=== PATIENT | male | born 1955 | race Caucasian/White ===

== ENCOUNTER 2018-11-16 16:41 | Inpatient (IN) | payer OTHER, MEDICAID ==
[~2018-11-16] VITALS: Ht 167.6 cm; Wt 81.6 kg
[~2018-11-16 16:41] MED LIST: ACET-9645 PO; AMOX-842 PO; BUSP15TA4 PO; CLOZ100T PO; FLUV50TA PO; IBUP-2213 PO; MULT-2410 PO; ZINC50TA7 PO
[2018-11-16 17:45] VITALS: BP 132/73
--- NOTE | 2018-11-16 18:02 | NUR ---
BIB HOSPITAL CODER FROM [facility] WITH C/O LOW HGB 7 DRAWN ON 11/818. PER HOSPITAL CODER PT IS WEAK AND VOMITED X 3 YESTERDAY. DENIES NVD TODAY. ON 09/18/18 WAS SENT TO [facility] FOR LOW Hgb HX; ANEMIA, SCHIZOPHRENIA, SEIZURES, BPH RX; LAMOTRIGINE, BENTROPINE, BUSPIRONE, TAMSULOSIN, CLOZAPINE,
--- NOTE | 2018-11-16 18:56 | NUR ---
PHLEB AT BEDSIDE.
[2018-11-16 19:02] LABS: BASOPHILS # (AUTO) 0.1 K/uL (0.00-0.22); BASOPHILS % (AUTO) 0.7 % (0.0-2.0); EOSINOPHILS # (AUTO) 0.2 K/uL (0-0.4); EOSINOPHILS % (AUTO) 2.4 % (0.0-4.0); LYMPHOCYTES # (AUTO) 1.6 K/uL (2.0-11.5); LYMPHOCYTES % (AUTO) 19.4 % (20.5-51.1); MEAN CORPUSCULAR HEMOGLOBIN 21 pg (27-31); MEAN CORPUSCULAR HGB CONC 30 g/dL (33-37); MEAN CORPUSCULAR VOLUME 71.4 fL (80-94); MONOCYTES # (AUTO) 0.5 K/uL (0.8-1.0); MONOCYTES % (AUTO) 6.8 % (1.7-9.3); NEUTROPHILS # (AUTO) 5.7 K/uL (1.8-7.7); NEUTROPHILS % (AUTO) 70.7 % (42.2-75.2); PLATELET COUNT (AUTO) 330 K/uL (140-450); RED BLOOD CELL COUNT(AUTO) 2.92 MIL/uL (4.20-6.10); RED CELL DISTRIBUTION WIDTH 20.3 % (11.6-13.7); WHITE BLOOD COUNT (AUTO) 8.1 K/uL (4.8-10.8)
[2018-11-16 19:07] LABS: HEMATOCRIT 20.9 % (36-52); HEMOGLOBIN 6.3 g/dL (12.0-18.0)
--- NOTE | 2018-11-16 19:09 | NUR ---
REPORT GIVEN TO RAMOS CHURCH AT THIS TIME FOR CONTINUITY OF CARE.
--- NOTE | 2018-11-16 19:10 | NUR ---
ASSUMED CARE OF PT FROM, BHARAT CHURCH
[2018-11-16 19:20] LABS: ALBUMIN 3.1 g/dL (3.4-5.0); ANION GAP 11.2 (8-16); CARBON DIOXIDE 29.5 mmol/L (21-32); CREATININE 0.5 mg/dL (0.7-1.3); POTASSIUM 3.7 mmol/L (3.5-5.1); TOTAL BILIRUBIN 0.2 mg/dL (0.0-1.0)
[2018-11-16] MEDS: NACL 0.9% 1,000 ML IV SCH (20:41)
[2018-11-16] MEDS ORDERED: DOCUSATE SODIUM 100 MG GELCAP PO PRN (20:45)
[2018-11-16] MEDS ORDERED: ZOLPIDEM 5 MG TAB PO PRN (20:45)
[2018-11-16] MEDS ORDERED: ONDANSETRON 4 MG/2 ML VIAL IM/IVP PRN (20:45)
[2018-11-16] MEDS ORDERED: ACETAMINOPHEN 325 MG TAB PO PRN (20:45)
[2018-11-16] MEDS ORDERED: MORPHINE SULFATE 4 MG/ML SYR IVP PRN (20:45)
[2018-11-16] MEDS ORDERED: HYDROcodone/APAP 5/325 MG 1 TAB TAB PO PRN (20:45)
--- NOTE | 2018-11-16 20:46 | NUR ---
PT RESTING IN BED, VSS. CAREGIVER AT BEDSIDE.
--- NOTE | 2018-11-16 21:15 | NUR ---
Patient will be admitted to care of DR BUCKLEY. Admited to TELE. Will go to room 106-B. Belongings list completed. Report to LYNNETTE WERNER.
[2018-11-16 21:20] VITALS: BP 141/64
--- NOTE | 2018-11-16 21:20 | NUR ---
RECEIVED BEDSIDE REPORT FROM AVIONICS REPAIR TECHNICIAN, PATIENT AMBULATORY FROM [facility] TO BED, ON RA, V/S TAKEN, IV IN LEFT AC 20 G SL, DRESSING INTACT. PATIENT DID NOT WANT TO WEAR YELLOW GOWN STATED "THAT'S DIRTY". EXPLAINED IT IS CLEAN PATIENT STATED "IT SMELLS BAD". WILL TRY AGAIN LATER, AAOX1 TO PERSON, SKIN INTACT.
[2018-11-16 21:21] LABS: PROTHROMBIN TIME 11.6 secs (10.8-13.4)
[2018-11-16 21:30] LABS: MAGNESIUM 1.8 mg/dL (1.8-2.4); PHOSPHORUS 3.2 mg/dL (2.5-4.9); THYROID STIMULATING HORMONE 2.47 uIU/mL (0.34-3.74)
[2018-11-16] MEDS ORDERED: TRAZ100T99 PO (22:09)
[2018-11-16] MEDS ORDERED: LAM200 PO (22:09)
[2018-11-16] MEDS ORDERED: BUSP15TA4 PO (22:09)
[2018-11-16] MEDS ORDERED: CLOZ100T PO (22:09)
[2018-11-16] MEDS ORDERED: TAMS0.4C96 PO (22:09)
[2018-11-16] MEDS ORDERED: BENZ-248 PO (22:09)
[2018-11-16] MEDS ORDERED: ALBUTEROL SULFATE/IPRATROPIU 3 ML SOL IH PRN (22:20)
--- NOTE | 2018-11-16 22:30 | NUR ---
CALLED [facility] SPOKE WITH ERICA, ASKED ADMISSION QUESTION, ASKED IF SHE CAN SIGN CONSENT FOR BLOOD, ERICA STATED NO. WILL NOTIFY RESIDENTS.
--- NOTE | 2018-11-16 23:04 | NUR ---
EXPLAINED THAT DR ORDERED BLOOD, PATIENT STATED "IT COST A TREMENDOUS AMOUNT OF MONEY". ASKED IF WANT BLOOD, PATIENT STATED "IT COST A TREMENDOUS AMOUNT OF MONEY". ASKED IF THAT MEANS YES OR NO? PATIENT DID NOT RESPOND.
[2018-11-17] VITALS (7 sets, daily range): BP systolic 97–128; BP diastolic 55–74
--- NOTE | 2018-11-17 01:17 | NUR ---
PATIENT REFUSING TO SIGN CONSENT TO BLOOD, ATTEMPTED TO EXPLAIN TO PATIENT WHY HE NEEDS IT, PATIENT CONTINUING TO REFUSE, ASKED TO SIGN REFUSAL TO BLOOD TRANSFUSION, PATIENT REFUSED TO SIGN, ASKED RN Kg TO TALK TO PATIENT, PATIENT SIGNED CONSENT TO REFUSE BLOOD TRANSFUSION, TOLD DR PARRY, DR AT BESIDE, EXPLAINED TO PATIENT WHY HE NEEDS IT, BELIEVES PATIENT IS UNABLE TO MAKE DECISIONS ON OWN.
--- NOTE | 2018-11-17 01:23 | NUR ---
CONSENT FOR BLOOD SIGNED BY DR PARRY AND DR MUNIZ.
[2018-11-17] MEDS: ACETAMINOPHEN 325 MG TAB PO SCH ×3 (01:49→08:00)
[2018-11-17] MEDS: FUROSEMIDE 20 MG TAB PO SCH ×2 (01:50→05:37)
--- NOTE | 2018-11-17 01:52 | NUR ---
PREINFUSION MEDICATIONS GIVEN BP 130/64 HR 70 100% O2SAT ON RA TEMP 97.5 F FLACC-0. IV IN LEFT SC FLUSHES. CONSENT SIGNED AND IN CHART.
--- NOTE | 2018-11-17 02:17 | NUR ---
STARTED BLOOD TRANSFUSION WITH CHARGE NURSE BLANK. WILL STAY AT BEDSIDE TO MONITOR PATIENT.
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
--- NOTE | 2018-11-17 02:47 | NUR ---
TEMP 97.6 F HR 63 RR 14 BP 119/64 0/10 PAIN PATIENT ATTEMPTED TO GET OUT OF BED, ASSISTED BACK INTO BED, BED ALARM ON, IV INTACT INFUSING BLOOD. PATIENT WANTED TO BE COVERED WITH BLANKET, REPOSITIONED FOR COMFORT, WILL STAY BY BEDSIDE TO MONITOR PATIENT.
--- NOTE | 2018-11-17 04:42 | NUR ---
PT REFUSED TO BE ASSESSED. RN SUMMER AWARE. NO SOB OR DISTRESS NOTED.
[2018-11-17] MEDS ORDERED: LORazepam 2 MG/ML VIAL IM/IVP PRN (05:15)
--- NOTE | 2018-11-17 06:02 | NUR ---
DUE PRE TRANSFUSION MEDICATIONS GIVEN, TALKED WITH DR PARRY TOLD TO DRAW LABS AND SEE WHERE PATIENT IS AT THAN START 2 UNIT BLOOD. REMOVED TUBING AND DISPOSED IN APPROPRIATE CONTAINER. FLUSHED IV WITH 10 ML. CHARGE NURSE BLANK FORRESTER.
[2018-11-17] MEDS: LORazepam 2 MG/ML VIAL IM/IVP PRN (06:34)
--- NOTE | 2018-11-17 06:38 | NUR ---
PATIENT RUNNING OUTSIDE HALLWAYS. TRIED TO HIT SISAL OPERATOR MEDICATED WITH ATIVAN FOR ANXIETY.
--- NOTE | 2018-11-17 06:55 | NUR ---
PATIENT REFUSING TO WEAR TELE BOX
--- NOTE | 2018-11-17 07:30 | NUR ---
ENDORSED PATIENT TO DAY SHIFT NURSE, PATIENT STABLE.
--- NOTE | 2018-11-17 07:31 | NUR ---
PATIENT LYING DOWN IN BED SLEEPING, AROUSABLE BY VOICE. NO DISTRESS NOTED. DENIES ANY PAIN. AAOX1, CALM, COOPERATIVE, SKIN COLOR APPROPRIATE TO ETHNICITY, WARM TO TOUCH. SKIN INTACT. RESPIRATIONS EVEN, UNLABORED, ON ROOM AIR. IV SITE INTACT, PATENT AND INFUSING IVF PER MD ORDERS. ABDOMEN SOFT, NON-DISTENDED. SAFETY MEASURES IN PLACE, CALL LIGHT WITHIN REACH. WILL CONTINUE TO MONITOR.
--- NOTE | 2018-11-17 07:51 | NUR ---
PATIENT HAS BEEN SCREENED AND CATEGORIZED LOW NUTRITION RISK. PATIENT WILL BE SEEN WITHIN 7 DAYS OF ADMISSION. 11/23/[address]
[2018-11-17] MEDS ORDERED: CLINICAL MONITORING MC PRN (07:55)
[2018-11-17 08:01] LABS: BASOPHILS % (AUTO) 0.7 % (0.0-2.0); EOSINOPHILS # (AUTO) 0.2 K/uL (0-0.4); EOSINOPHILS % (AUTO) 2.8 % (0.0-4.0); HEMATOCRIT 26.4 % (36-52); LYMPHOCYTES # (AUTO) 1.1 K/uL (2.0-11.5); LYMPHOCYTES % (AUTO) 15.4 % (20.5-51.1); MEAN CORPUSCULAR HEMOGLOBIN 22 pg (27-31); MEAN CORPUSCULAR HGB CONC 30 g/dL (33-37); MONOCYTES # (AUTO) 0.4 K/uL (0.8-1.0); MONOCYTES % (AUTO) 6.2 % (1.7-9.3); NEUTROPHILS # (AUTO) 5.3 K/uL (1.8-7.7); NEUTROPHILS % (AUTO) 74.9 % (42.2-75.2); PLATELET COUNT (AUTO) 322 K/uL (140-450); RED BLOOD CELL COUNT(AUTO) 3.62 MIL/uL (4.20-6.10); RED CELL DISTRIBUTION WIDTH 20.7 % (11.6-13.7); WHITE BLOOD COUNT (AUTO) 7.1 K/uL (4.8-10.8)
[2018-11-17 08:07] LABS: ANION GAP 10.7 (8-16); CARBON DIOXIDE 30.9 mmol/L (21-32); CREATININE 0.6 mg/dL (0.7-1.3); POTASSIUM 3.6 mmol/L (3.5-5.1)
[2018-11-17 08:13] LABS: CHOL/HDL RATIO 2.8 (1-4.5); MAGNESIUM 1.8 mg/dL (1.8-2.4); PHOSPHORUS 3.5 mg/dL (2.5-4.9)
[2018-11-17] MEDS ORDERED: busPIRone 5 MG TAB PO SCH (09:00)
[2018-11-17] MEDS ORDERED: SODIUM FERRIC GLUCONATE 125 MG in NACL 0.9% 100 ML IV SCH (09:00)
[2018-11-17] MEDS ORDERED: BENZTROPINE 1 MG TAB PO SCH (09:00)
--- NOTE | 2018-11-17 09:00 | NUR ---
PATIENT AWAKE, AND EATING BREAKFAST. NO DISTRESS NOTED. CONDITION UNCHANGED. WILL CONTINUE TO MONITOR.
[2018-11-17] MEDS: TAMSULOSIN 0.4 MG CAP PO SCH (09:50)
[2018-11-17] MEDS: cloZAPine 100 MG TAB PO SCH ×2 (09:56→21:00)
--- NOTE | 2018-11-17 10:09 | NUR ---
PATIENT SITTING IN BED, JUST FINISHED WORKING WITH PHYSICAL THERAPISTS. SCHEDULED MEDICATIONS DUE GIVEN. WILL CONTINUE TO MONITOR.
[2018-11-17 10:26] LABS: EOSINOPHILS % (MANUAL) 5 % (0-4); LYMPHOCYTES % (MANUAL) 13 % (20-46); MONOCYTES % (MANUAL) 6 % (5-12)
[2018-11-17] MEDS ORDERED: MAGNESIUM CITRATE 300 ML BTL PO SCH (11:20)
[2018-11-17] MEDS: LACTULOSE 20 GM/30 ML UDC PO SCH ×3 (12:42→20:42)
[2018-11-17] MEDS: SENNA 8.6 MG TAB PO SCH ×2 (12:42→17:28)
--- NOTE | 2018-11-17 13:00 | NUR ---
PATIENT LYING DOWN IN BED SLEEPING, AROUSABLE BY VOICE. NO DISTRESS NOTED. CONDITION UNCHANGED. WILL CONTINUE TO MONITOR.
[2018-11-17 13:13] LABS: APPEARANCE,URINE CLEAR (CLEAR); BILIRUBIN,URINE NEGATIVE (NEGATIVE); BLOOD, URINE NEGATIVE (NEGATIVE); COLOR,URINE YELLOW (YELLOW); LEUKOCYTE ESTERASE ,URINE NEGATIVE (NEGATIVE); NITRITE, URINE NEGATIVE (NEGATIVE); UGLUCOSE NEGATIVE (NEGATIVE)
[2018-11-17 13:42] LABS: BARBITURATE, URINE NEG. ng/ml (NEG <=200); BENZODIAZEPINE, URINE NEG. ng/mL (NEG <=200); CANNABINOID, URINE NEG. ng/mL (NEG <=50); COCAINE, URINE NEG. ng/mL (NEG <=300); OPIATE, URINE NEG. ng/mL (NEG <=2000); PHENCYCLIDINE SCREEN,URINE NEG. ng/mL (NEG <=25)
--- NOTE | 2018-11-17 15:21 | NUR ---
Warehouse Pricing And Inventory Clerk Note: Per patient's caregiver Marilyn at [facility] , patient has been living at their facility since May 2011. Patient does not have any family nor is conserved according to Marilyn. She stated he does not have any difficulty ambulating and does not use any DMEs at their facility. Patient's pcp follows up with patient at [facility]. Marilyn or her delicatessen department manager Valentine may provide transportation for patient to return to their facility for our hospital.
--- NOTE | 2018-11-17 17:30 | NUR ---
PATIENT SITTING IN BED COMFORTABLY. NO BM YET PER PATIENT REPORTS. SCHEDULED MEDICATIONS DUE GIVEN. WILL CONTINUE TO MONITOR.
--- NOTE | 2018-11-17 19:30 | NUR ---
RECEIVED REPORT FROM DAYSHIFT NURSE AT BEDSIDE FOR CONTINUITY OF CARE. PT AAOX1. NO SOB NO S/S OF DISTRESS ON RA. IV NOTED LAC SALINE LOCK. BED LOWERED CALL LIGHT WITHIN REACH WILL CONTINUE TO MONITOR.
--- NOTE | 2018-11-17 19:30 | NUR ---
GAVE REPORT TO RESTAURANT DELIVERY DRIVER NURSE FOR CONTINUITY OF CARE. PATIENT IN STABLE CONDITION.
[2018-11-17] MEDS: traZODone 50 MG TAB PO SCH (20:42)
[2018-11-17] MEDS: busPIRone 5 MG TAB PO SCH (20:42)
[2018-11-17] MEDS: POLYETHYLENE GLYCOL 17 GM/PKT PO SCH (20:43)
[2018-11-17] MEDS ORDERED: traZODone 50 MG TAB PO SCH (21:00)
[2018-11-17] MEDS: NACL 0.9% 1,000 ML IV SCH (21:44)
[2018-11-18] VITALS: BP 90/49
[2018-11-18 04:00] VITALS: BP 93/46
[2018-11-18 05:59] LABS: BASOPHILS # (AUTO) 0.1 K/uL (0.00-0.22); BASOPHILS % (AUTO) 0.7 % (0.0-2.0); EOSINOPHILS # (AUTO) 0.1 K/uL (0-0.4); EOSINOPHILS % (AUTO) 1.9 % (0.0-4.0); HEMATOCRIT 25.4 % (36-52); HEMOGLOBIN 7.6 g/dL (12.0-18.0); LYMPHOCYTES # (AUTO) 1.3 K/uL (2.0-11.5); LYMPHOCYTES % (AUTO) 16.9 % (20.5-51.1); MEAN CORPUSCULAR HEMOGLOBIN 22 pg (27-31); MEAN CORPUSCULAR HGB CONC 30 g/dL (33-37); MONOCYTES # (AUTO) 0.5 K/uL (0.8-1.0); MONOCYTES % (AUTO) 6.5 % (1.7-9.3); NEUTROPHILS # (AUTO) 5.7 K/uL (1.8-7.7); PLATELET COUNT (AUTO) 324 K/uL (140-450); RED BLOOD CELL COUNT(AUTO) 3.48 MIL/uL (4.20-6.10); RED CELL DISTRIBUTION WIDTH 20.4 % (11.6-13.7); WHITE BLOOD COUNT (AUTO) 7.7 K/uL (4.8-10.8)
[2018-11-18 06:13] LABS: ANION GAP 10.7 (8-16); CARBON DIOXIDE 28.3 mmol/L (21-32); CREATININE 0.5 mg/dL (0.7-1.3)
[2018-11-18 06:19] LABS: PHOSPHORUS 3.9 mg/dL (2.5-4.9)
--- NOTE | 2018-11-18 06:54 | NUR ---
PT REFUSED FLEET ENEMA.
[2018-11-18] MEDS ORDERED: MAGNESIUM CITRATE 300 ML BTL ONE (06:56)
--- NOTE | 2018-11-18 07:26 | NUR ---
ENDORSED REPORT TO DAYSHIFT NURSE AT BEDSIDE FOR CONTINUITY OF CARE.
--- NOTE | 2018-11-18 07:27 | NUR ---
Received bedside report from pm nurse Swetha. Pt asleep in bed, respirations even & nonlabored, FLACC 0. Call light within reach, bed alarm on.
[2018-11-18 08:00] VITALS: BP_SYST 106; BP_SYST 113; BP_DIAS 62; BP_DIAS 63
[2018-11-18] MEDS ORDERED: FERROUS SULFATE 325 MG TABEC PO SCH (08:00)
[2018-11-18] MEDS ORDERED: MAGNESIUM CITRATE 300 ML BTL PO SCH ×2 (08:00→13:30)
[2018-11-18] MEDS ORDERED: SODIUM PHOSPHATE 118 ML ENEM RC SCH (08:00)
[2018-11-18 08:29] LABS: FERRITIN 13 ng/mL (30-400); T4 (THYROXINE) 7.7 ug/dL (4.5-12.0); TRANSFERRIN 253 mg/dL (200-370)
[2018-11-18] MEDS: POLYETHYLENE GLYCOL 17 GM/PKT PO SCH ×4 (09:00→21:33)
[2018-11-18] MEDS: POTASSIUM CHLORIDE 20% 40 MEQ/15 ML UDC GT SCH (09:00)
[2018-11-18] MEDS: LACTULOSE 20 GM/30 ML UDC PO SCH ×6 (09:00→21:33)
[2018-11-18] MEDS: TAMSULOSIN 0.4 MG CAP PO SCH (09:00)
[2018-11-18] MEDS: ASCORBIC ACID 500 MG TAB PO SCH (09:00)
[2018-11-18] MEDS: SENNA 8.6 MG TAB PO SCH ×3 (09:00→17:06)
[2018-11-18] MEDS: cloZAPine 100 MG TAB PO SCH ×3 (09:00→20:37)
[2018-11-18] MEDS: busPIRone 5 MG TAB PO SCH ×3 (09:00→20:36)
--- NOTE | 2018-11-18 09:16 | NUR ---
Pt refused all due meds this am. Explained indications of meds, & importance of completing bowel prep for EDG/colonoscopy today. Pt repeatedly states "no more, no more, i don't want it". Will notify physician of refusal.
[2018-11-18] MEDS: lamoTRIgine 25 MG TAB PO SCH ×2 (09:17→20:37)
[2018-11-18] MEDS ORDERED: VITC500 PO (10:30)
[2018-11-18] MEDS ORDERED: FERR325E14 PO (10:31)
--- NOTE | 2018-11-18 11:00 | NUR ---
DAY CARE DIRECTOR reports that while she is assisting pt to restroom, pt purposefully pulled out left ac IV. Immediately assessed pt. Intact IV cannula on floor, left ac insertion site without swelling/redness, min bleeding cleansed with NS, patted dry, & covered with band-aid. Pt states "no need for it" when asked why he pulled it out. Explained benefits of IV access, pt repeatedly replies "no, no." No IV meds due at this time. IVF NS @ 10ml/hr held. Pt was assisted back to bed. Call light within reach. Bed alarm on. Will cont to monitor.
[2018-11-18] MEDS: LORazepam 2 MG/ML VIAL IM/IVP PRN (11:24)
--- NOTE | 2018-11-18 11:24 | NUR ---
Lorazepam admin: Pt observed to be generally anxious, undressing, pulling out manager environmental, & wanting to leave hospital. Explained today's plan of care, pt repeatedly replies "no, no." Pt assisted to bed. Lorazepam IM administered. Call light within reach, bed alarm on.
[2018-11-18 12:00] VITALS: BP 109/62
--- NOTE | 2018-11-18 12:24 | NUR ---
Lorazepam reassessment: Pt resting in bed, awake, calm & cooperative, no signs of distress. Call light within reach. Bed alarm on. Bilat padded siderails up.
--- NOTE | 2018-11-18 14:00 | NUR ---
New IV access to right forearm. Resumed NS @ 10ml/hr. Pt shows no signs of distress, calm & cooperative, no c/o discomfort. Call light within reach.
--- NOTE | 2018-11-18 14:42 | NUR ---
Spoke with Tisha from [facility] and she will review pt's order for PT eval and will call me back. Faxed to [facility] .
[2018-11-18] MEDS ORDERED: SODIUM FERRIC GLUCONATE 125 MG in NACL 0.9% 100 ML IV SCH (15:00)
--- NOTE | 2018-11-18 15:00 | NUR ---
Pt pulled out IV to right forearm. Cannula intact. IV insertion site with min bleeding, cleansed with NS, patted dry, & covered with bandaid. Pt has no c/o pain/discomfort. Bed alarm on. Call light within reach.
--- NOTE | 2018-11-18 15:36 | NUR ---
Tisha called from [facility] they are accepting pt.
[2018-11-18 16:00] VITALS: BP 106/62
--- NOTE | 2018-11-18 19:10 | NUR ---
Report given to pm nurse Mechelle.
--- NOTE | 2018-11-18 19:11 | NUR ---
RECEIVED BEDSIDE REPORT FROM DAY SHIFT NURSE WILMA RN, PT STABLE, NO DISTRESS NOTED, PT HAS NO IV ACCESS AT THIS TIME, WILL INSERT, PT ON ROOM AIR, NO SOB, INITIAL ASSESSMENT DONE, ALL SAFETY PRECAUTION MET, CALL LIGHT WITHIN REACH, WILL CONTINUE TO MONITOR.
[2018-11-18 20:00] VITALS: BP 119/61
[2018-11-18] MEDS: traZODone 50 MG TAB PO SCH (20:22)
--- NOTE | 2018-11-18 20:40 | NUR ---
PT REFUSED IV INSERTION, STATED DOES NOT WANT IT. PT RESTING ON BED, NO DISTRESS NOTED, CALL LIGHT WITHIN REACH, DR. PARRY NOTIFIED REGARDING PT REFUSAL, STATED UNDERSTANDING.
[2018-11-18] MEDS: NACL 0.9% 1,000 ML IV SCH (20:41)
--- NOTE | 2018-11-18 21:33 | NUR ---
PT REFUSED PO MEDICATION, PT STATED THAT IT IS POISON, EDUCATE PT REGARDING MEDICATION, PT INSISTED THAT MEDICATION DOES NOT WORK AND IT IS POISON, LACTULOSE AND MIRALAX MIXED IN APPLE JUICE WAS TAKEN BY PT, BUT PT REFUSED THE TABLETS, PT RESTING, NO DISTRESS NOTED, CALL LIGHT WITHIN REACH, WILL CONTINUE TO MONITOR. Addendum: 11/18/18 at 2233 by Mechelle Gibbons RN NOTIFIED REGARDING PT REFUSAL, STATED UNDERSTANDING.
--- NOTE | 2018-11-18 23:50 | NUR ---
PT RESTING, V/S TAKEN, WITHIN PT BASELINE, CALL LIGHT WITHIN REACH, WILL CONTINUE TO MONITOR.
[2018-11-19] VITALS: BP 113/43
--- NOTE | 2018-11-19 02:45 | NUR ---
CHECKED ON PT, PT SLEEPING, NO DISTRESS NOTED, CALL LIGHT WITHIN REACH, WILL CONTINUE TO MONITOR.
[2018-11-19 04:00] VITALS: BP 110/48
--- NOTE | 2018-11-19 04:10 | NUR ---
CHECKED ON PT, PT SLEEPING, NO DISTRESS NOTED, V/S TAKEN, WNL. CALL LIGHT WITHIN REACH, WILL CONTINUE TO MONITOR.
[2018-11-19 06:34] LABS: BASOPHILS # (AUTO) 0.1 K/uL (0.00-0.22); BASOPHILS % (AUTO) 0.7 % (0.0-2.0); EOSINOPHILS # (AUTO) 0.1 K/uL (0-0.4); EOSINOPHILS % (AUTO) 1.4 % (0.0-4.0); HEMOGLOBIN 7.9 g/dL (12.0-18.0); LYMPHOCYTES # (AUTO) 1.2 K/uL (2.0-11.5); LYMPHOCYTES % (AUTO) 15.6 % (20.5-51.1); MEAN CORPUSCULAR HEMOGLOBIN 22 pg (27-31); MEAN CORPUSCULAR HGB CONC 30 g/dL (33-37); MEAN CORPUSCULAR VOLUME 72.8 fL (80-94); MONOCYTES # (AUTO) 0.5 K/uL (0.8-1.0); MONOCYTES % (AUTO) 6.8 % (1.7-9.3); NEUTROPHILS # (AUTO) 5.8 K/uL (1.8-7.7); NEUTROPHILS % (AUTO) 75.5 % (42.2-75.2); PLATELET COUNT (AUTO) 300 K/uL (140-450); RED BLOOD CELL COUNT(AUTO) 3.58 MIL/uL (4.20-6.10); RED CELL DISTRIBUTION WIDTH 20.9 % (11.6-13.7); WHITE BLOOD COUNT (AUTO) 7.7 K/uL (4.8-10.8)
[2018-11-19 06:45] LABS: ANION GAP 10.1 (8-16); CARBON DIOXIDE 30.7 mmol/L (21-32); CREATININE 0.5 mg/dL (0.7-1.3); POTASSIUM 3.8 mmol/L (3.5-5.1)
[2018-11-19 06:52] LABS: MAGNESIUM 2.3 mg/dL (1.8-2.4); PHOSPHORUS 3.4 mg/dL (2.5-4.9)
--- NOTE | 2018-11-19 07:20 | NUR ---
ENDORSED PT TO DAY SHIFT NURSE WILAM RN, PT IN STABLE CONDITION NO DISTRESS NOTED.
--- NOTE | 2018-11-19 07:21 | NUR ---
Received report from pm nurse Mechelle. Pt asleep in bed, respirations even & nonlabored, FLACC 0. Call light within reach. Bed alarm on. Bilat padded siderails up.
[2018-11-19 08:00] VITALS: BP 133/74
[2018-11-19] MEDS: ASCORBIC ACID 500 MG TAB PO SCH ×2 (09:00→09:06)
[2018-11-19] MEDS: POTASSIUM CHLORIDE 20% 40 MEQ/15 ML UDC GT SCH ×2 (09:00→09:05)
[2018-11-19] MEDS: lamoTRIgine 25 MG TAB PO SCH ×3 (09:00→20:41)
[2018-11-19] MEDS: TAMSULOSIN 0.4 MG CAP PO SCH ×2 (09:00→09:05)
[2018-11-19] MEDS: LACTULOSE 20 GM/30 ML UDC PO SCH ×3 (09:00→13:00)
[2018-11-19] MEDS: busPIRone 5 MG TAB PO SCH ×3 (09:00→20:39)
[2018-11-19] MEDS: POLYETHYLENE GLYCOL 17 GM/PKT PO SCH ×2 (09:00→09:04)
[2018-11-19] MEDS: cloZAPine 100 MG TAB PO SCH ×3 (09:00→20:39)
[2018-11-19] MEDS: SENNA 8.6 MG TAB PO SCH ×4 (09:00→21:28)
--- NOTE | 2018-11-19 09:10 | NUR ---
Pt was pacing in room, stating he wants to eat. Explained need for NPO prior to EGD/colonoscopy. Pt insist on eating regular food. Pt redirected to watch TV. Pt is resting in bed, calm, no c/o discomfort. Will cont to monitor.
[2018-11-19 12:00] VITALS: BP 113/69
--- NOTE | 2018-11-19 12:15 | NUR ---
Pt left unit via hospital bed to OR for EDG/colonoscopy, accompanied by OR nurse Vero. Pt awake, no s/sx of distress, no c/o discomfort.
[2018-11-19] MEDS ORDERED: fentaNYL 0.05 MG/ML VIAL ONE (12:35)
[2018-11-19] MEDS ORDERED: MIDAZOLAM 2 MG/2 ML VIAL ONE ×2 (12:35→12:36)
[2018-11-19] MEDS ORDERED: diphenhydrAMINE 50 MG/ML VIAL ONE (12:36)
--- NOTE | 2018-11-19 13:42 | NUR ---
Called [facility] spoke with Keke informing her pt will go home later this afternoon.
--- NOTE | 2018-11-19 14:15 | NUR ---
Pt came back to rm 106B from EGD/colonoscopy. Report received from OR nurse Vero. Pt awake, verbally responsive, no c/o discomfort at this time, no signs of distress. Left hand IV 22G in place with ongoing NS @ 10ml/hr.
[2018-11-19 14:27] LABS: ALBUMIN 3.3 g/dL (3.4-5.0); BILIRUBIN,DIRECT 0.1 mg/dL (0.0-0.3); TOTAL BILIRUBIN 0.3 mg/dL (0.0-1.0)
--- NOTE | 2018-11-19 15:00 | NUR ---
Consent for IV contrast admin completed by Dr Santiago. R ac 20G IV saline lock in place. software validation technician notified. Awaiting pick-up for CT abd with po & IV contrast.
[2018-11-19] MEDS: DEXT 5% /NACL 0.9% 1,000 ML IV SCH (15:15)
[2018-11-19 16:00] VITALS: BP 118/68
--- NOTE | 2018-11-19 16:30 | NUR ---
Spoke to electrical equipment technician to inquire of pick-up time for CT abd with po & iv contrast. Per electrical equipment technician, he will initiate po contrast soon. No ETA available at this time. Reminded of stat order per phsyician. Pt currently resting in bed, asleep, respirations even & nonlabored, FLACC 0. L hand iv intact with ongoing D5NS @ 50ml/hr. R ac iv saline lock intact & asymptomatic. Call light within reach.
--- NOTE | 2018-11-19 19:00 | NUR ---
Initiated po contrast admin. Pt cooperative & kamille well.
--- NOTE | 2018-11-19 19:25 | NUR ---
Report given to pm nurse Omar.
--- NOTE | 2018-11-19 19:30 | NUR ---
RECEIVED ENDORSEMENT FROM AM RN. PT STABLE. NO SOB OR DISTRESS NOTED, ON ROOM AIR. PT HAS IV ACCESS ON LEFT HAND, 22 GAUGE AND RIGHT ANTECUBITAL, BOTH INTACT AND PATENT. BED IN THE LOWEST POSITION, CALL LIGHT WITHIN REACH. INITIAL ASSESSMENT DONE, ALL SAFETY PRECAUTION MET. WILL CONTINUE TO MONITOR.
[2018-11-19 20:00] VITALS: BP 118/59
[2018-11-19] MEDS: traZODone 50 MG TAB PO SCH (21:28)
[2018-11-19] MEDS: SODIUM FERRIC GLUCONATE 125 MG in NACL 0.9% 100 ML IV SCH (21:29)
--- NOTE | 2018-11-19 22:30 | NUR ---
PATIENT WENT TO CT TO GET CT WITH CONTRAST DONE.
--- NOTE | 2018-11-19 22:40 | NUR ---
PATIENT CAME BACK FROM CT, CONTINUED IVF ORDERED. WILL CONTINUE TO MONITOR.
[2018-11-20] VITALS: BP 117/56
--- NOTE | 2018-11-20 00:02 | NUR ---
ROUNDS DONE, VITALS TAKEN. NO SOB OR DISTRESS NOTED.
--- NOTE | 2018-11-20 02:00 | NUR ---
FREQUENT CHECKS MADE, NO DISTRESS NOTED.
[2018-11-20 04:00] VITALS: BP 107/72
--- NOTE | 2018-11-20 04:13 | NUR ---
ROUNDS DONE, VITALS TAKEN, VISIBLE CHEST RISE AND FALL NOTED. NO SOB OR DISTRESS NOTED.
[2018-11-20 06:05] LABS: BASOPHILS # (AUTO) 0.1 K/uL (0.00-0.22); BASOPHILS % (AUTO) 1.2 % (0.0-2.0); EOSINOPHILS # (AUTO) 0.1 K/uL (0-0.4); EOSINOPHILS % (AUTO) 1.5 % (0.0-4.0); HEMATOCRIT 26.2 % (36-52); HEMOGLOBIN 7.9 g/dL (12.0-18.0); LYMPHOCYTES % (AUTO) 11.3 % (20.5-51.1); MEAN CORPUSCULAR HEMOGLOBIN 22 pg (27-31); MEAN CORPUSCULAR HGB CONC 30 g/dL (33-37); MEAN CORPUSCULAR VOLUME 73.4 fL (80-94); MONOCYTES # (AUTO) 0.6 K/uL (0.8-1.0); MONOCYTES % (AUTO) 6.2 % (1.7-9.3); NEUTROPHILS # (AUTO) 7.2 K/uL (1.8-7.7); NEUTROPHILS % (AUTO) 79.8 % (42.2-75.2); PLATELET COUNT (AUTO) 276 K/uL (140-450); RED BLOOD CELL COUNT(AUTO) 3.57 MIL/uL (4.20-6.10); RED CELL DISTRIBUTION WIDTH 20.7 % (11.6-13.7)
[2018-11-20 06:47] LABS: ANION GAP 7.4 (8-16); CARBON DIOXIDE 31.1 mmol/L (21-32); CREATININE 0.5 mg/dL (0.7-1.3); POTASSIUM 3.5 mmol/L (3.5-5.1)
[2018-11-20 06:57] LABS: MAGNESIUM 1.8 mg/dL (1.8-2.4); PHOSPHORUS 3.3 mg/dL (2.5-4.9)
--- NOTE | 2018-11-20 07:05 | NUR ---
ENDORSED PATIENT TO AM SHIFT RN. PATIENT IN STABLE CONDITION.
--- NOTE | 2018-11-20 07:06 | NUR ---
RECEIVED BEDSIDE REPORT FROM RN MADHU. PT STABLE, SLEEPING, BUT EASILY AROUSABLE. ON INTERNET SOURCER. NO SIGNS OF DISTRESS NOTED. NO REDNESS, SWELLING, OR INFLAMMATION NOTED ON IV SITE. BED IN LOW POSITION, BED ALARM ON. CALL DESAI WITHIN REACH. SAFETY MEASURES IN PLACE. PLAN OF CARE REVIEWED.
[2018-11-20 08:00] VITALS: BP 103/60
--- NOTE | 2018-11-20 10:03 | NUR ---
Clerical Grader Note: Per build and release manager Valentine of [facility] , prior to hospital admission patient was self responsible with medical decisions.
[2018-11-20] MEDS: POTASSIUM CHLORIDE 20% 40 MEQ/15 ML UDC GT SCH (10:24)
[2018-11-20] MEDS: lamoTRIgine 25 MG TAB PO SCH ×2 (10:25→21:05)
[2018-11-20] MEDS: ASCORBIC ACID 500 MG TAB PO SCH (10:25)
[2018-11-20] MEDS: busPIRone 5 MG TAB PO SCH ×2 (10:25→21:05)
[2018-11-20] MEDS: cloZAPine 100 MG TAB PO SCH ×2 (10:26→21:06)
[2018-11-20] MEDS: TAMSULOSIN 0.4 MG CAP PO SCH (10:26)
[2018-11-20] MEDS: SODIUM FERRIC GLUCONATE 125 MG in NACL 0.9% 100 ML IV SCH ×2 (10:27→21:01)
[2018-11-20] MEDS: LACTULOSE 20 GM/30 ML UDC PO SCH (10:27)
--- NOTE | 2018-11-20 10:32 | NUR ---
ADMINISTERED SCHEDULED MEDICATIONS. PT TOLERATED WELL. NO OTHER NEEDS AT THIS TIME.
[2018-11-20] MEDS: DEXT 5% /NACL 0.9% 1,000 ML IV SCH ×2 (10:53→15:20)
[2018-11-20 12:00] VITALS: BP 126/70
--- NOTE | 2018-11-20 12:30 | NUR ---
VITAL SIGNS TAKEN. PT STABLE, SLEEPING, BUT EASILY AROUSABLE.
[2018-11-20] MEDS ORDERED: MORPHINE SULFATE 4 MG/ML SYR IVP ONE (13:15)
--- NOTE | 2018-11-20 15:22 | NUR ---
IV BAG CHANGED. PT STABLE, SLEEPING, BUT EASILY AROUSABLE. NO OTHER NEEDS AT THIS TIME.
[2018-11-20 16:00] VITALS: BP 137/68
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
--- NOTE | 2018-11-20 17:06 | NUR ---
MADE PT AWARE REGARDING CHANGE OF DIET. PT VERBALIZED UNDERSTANDING.
--- NOTE | 2018-11-20 18:00 | NUR ---
ENDORSED PT TO LYNNETTE GARCIA. PT STABLE, SLEEPING BUT EASILY AROUSABLE.
--- NOTE | 2018-11-20 18:08 | NUR ---
PAGED , LYNSEY TO FOLLOW UP WITH THE EVALUATION, PER EXCHANGE, DR. JIMENEZ IS THE POLICE CAPTAIN PRECINCT FOR THE GROUP. AWAITING FOR CALL BACK.
--- NOTE | 2018-11-20 18:10 | NUR ---
RECEIVED SBAR REPORT AT PT BEDSIDE. PATIENT SEEN SLEEPING, EASILY AWAKENS. NO ACUTE DISTRESS NOTED. DENIES DISCOMFORT.
--- NOTE | 2018-11-20 18:29 | NUR ---
DR. MENON CALLED BACK AND STATED HE WILL SEE PT TONIGHT. GARCIA-LYNNETTE NOTIFIED. Addendum: 11/20/18 at 1834 by Jayleen Lawson RN DR. RIZVI IS ROUNDING AND NOTIFIED THAT CONSENT IS NOT SIGNED YET.
--- NOTE | 2018-11-20 19:29 | NUR ---
SBAR REPORT GIVEN TO EDUARDO MANDEL AT PT BEDSIDE. PATIENT SEEN RESTING IN BED UNDER COVERS, NO ACUTE DISTRESS NOTED. PATIENT KEPT NPO.
--- NOTE | 2018-11-20 19:29 | NUR ---
RECD. RESTING IN BED, AWAKE, A/OX1. REORIENTED TO HOSPITAL SETTING. IV AT THE RIGHT AC G20 PULLED OUT. WILL INSERT A NEW ONE, IV SALINE LOCK AT THE LEFT HAND, G22 IS NOT FLUSHING WELL. PLAN OF CARE FOR THE SHIFT DISCUSSED. NEEDS REINFORCEMENT. SAFETY MEASURES ENFORCED. SIDE RAILS PADDED. BED ON ALARM. ON BILATERAL LEG SEQUENTIALS. DENIES PAIN 0/10.
--- NOTE | 2018-11-20 19:30 | NUR ---
RECD. RESTING IN BED WITH FACE COVERED WITH BLANKET, WAKEN UP. A/OX1. REORIENTED TO HOSPITAL SETTING. IV AT THE RIGHT AC G20, OUT, IV SALINE LOCK AT THE LEFT HAND G22. ON BILATERAL LEG SEQUENTIALS. SAFETY MEASURES ENFORCED, BED ON ALARM, SIDE RAILS PADDED. PLAN OF CARE FOR THE SHIFT DISCUSSED. NEEDS REINFORCEMENT. DENIES PAIN 0/10.
--- NOTE | 2018-11-20 19:31 | NUR ---
Patient's Plan of Care was discussed and reviewed with MOLD FINISHER: EARLENE
[2018-11-20 20:00] VITALS: BP 100/47
[2018-11-20] MEDS: SENNA 8.6 MG TAB PO SCH (21:05)
--- NOTE | 2018-11-20 21:05 | NUR ---
DUE PO MEDICATIONS GIVEN. COOPERATIVE. STATED HE DOES NOT WANT TO HAVE SURGERY BECAUSE IT WILL CAUSE PAIN. EXPLAINED THAT HE WILL BE GIVEN PAIN MEDICATION, STILL DOES NOT WANT IT.
[2018-11-20] MEDS: traZODone 50 MG TAB PO SCH (21:06)
--- NOTE | 2018-11-20 22:00 | NUR ---
GOT OUT OF BED TO GO TO BR TO VOID, BEDDINGS CHANGED BY TAX SERVICES MANAGER. SAFETY MAINTAINED.
--- NOTE | 2018-11-20 22:15 | NUR ---
NEW IV LINE INSERTED BY LYNNETTE WILLIS AT THE LEFT FOREARM G22.
--- NOTE | 2018-11-20 22:30 | NUR ---
REQUESTED FOR BEDPAN TO HAVE BM. HAD SMALL AMOUNT OF LOOSE BM, DARK BROWNISH COLOR.
[2018-11-21] VITALS: BP 119/62
--- NOTE | 2018-11-21 | NUR ---
SLEEPING IN BED COMFORTABLY, BED ON ALARM.
--- NOTE | 2018-11-21 02:39 | NUR ---
RECEIVED BEDSIDE REPORT FROM MINISTERIO FOR CONTINUITY OF CARE, PT IN BED SLEEPING. IV IN LEFT FA 22 G. NO SIGNS OF DISTRESS. BED ALARM ON.
[2018-11-21 04:00] VITALS: BP 126/95
--- NOTE | 2018-11-21 04:30 | NUR ---
SPOKE WITH RESIDENT REGARDING SX, DR NUNO STATED LYNSEY SEEN PATIENT AND SAID PATIENT CANT MAKE OWN DECISIONS, MAY NEED 2 MD SIGNATURE FOR SX. PLACED CONSENT IN CHART.
[2018-11-21 07:27] LABS: BASOPHILS # (AUTO) 0.1 K/uL (0.00-0.22); BASOPHILS % (AUTO) 1.4 % (0.0-2.0); EOSINOPHILS # (AUTO) 0.1 K/uL (0-0.4); EOSINOPHILS % (AUTO) 1.6 % (0.0-4.0); HEMATOCRIT 26.1 % (36-52); HEMOGLOBIN 7.8 g/dL (12.0-18.0); LYMPHOCYTES # (AUTO) 1.5 K/uL (2.0-11.5); LYMPHOCYTES % (AUTO) 16.9 % (20.5-51.1); MEAN CORPUSCULAR HEMOGLOBIN 22 pg (27-31); MEAN CORPUSCULAR HGB CONC 30 g/dL (33-37); MEAN CORPUSCULAR VOLUME 73.6 fL (80-94); MONOCYTES # (AUTO) 0.6 K/uL (0.8-1.0); MONOCYTES % (AUTO) 6.5 % (1.7-9.3); NEUTROPHILS # (AUTO) 6.3 K/uL (1.8-7.7); NEUTROPHILS % (AUTO) 73.6 % (42.2-75.2); PLATELET COUNT (AUTO) 286 K/uL (140-450); RED BLOOD CELL COUNT(AUTO) 3.55 MIL/uL (4.20-6.10); RED CELL DISTRIBUTION WIDTH 20.5 % (11.6-13.7); WHITE BLOOD COUNT (AUTO) 8.6 K/uL (4.8-10.8)
--- NOTE | 2018-11-21 07:30 | NUR ---
RECEIVED BEDSIDE REPORT FROM RN SUMMER. PT STABLE, SLEEPING BUT EASILY AROUSABLE. NO SIGNS OF DISTRESS NOTED. NO REDNESS, SWELLING, OR INFLAMMATION NOTED ON IV SITE. BED IN LOW POSITION, BED ALARM ON. CALL LIGHT WITHIN REACH. PLAN OF CARE REVIEWED.
--- NOTE | 2018-11-21 07:36 | NUR ---
ENDORSED PT TO DAY SHIFT RN, PATIENT STABLE.
[2018-11-21 07:44] LABS: ANION GAP 9.5 (8-16); CARBON DIOXIDE 29.4 mmol/L (21-32); CREATININE 0.5 mg/dL (0.7-1.3); POTASSIUM 3.9 mmol/L (3.5-5.1)
[2018-11-21 07:57] LABS: MAGNESIUM 1.7 mg/dL (1.8-2.4); PHOSPHORUS 3.2 mg/dL (2.5-4.9)
[2018-11-21 08:00] VITALS: BP 130/67
[2018-11-21] MEDS: POTASSIUM CHLORIDE 20% 40 MEQ/15 ML UDC GT SCH (09:13)
[2018-11-21] MEDS: SODIUM FERRIC GLUCONATE 125 MG in NACL 0.9% 100 ML IV SCH ×2 (09:15→20:33)
[2018-11-21] MEDS: lamoTRIgine 25 MG TAB PO SCH ×2 (09:16→20:25)
[2018-11-21] MEDS: busPIRone 5 MG TAB PO SCH ×2 (09:16→20:25)
[2018-11-21] MEDS: TAMSULOSIN 0.4 MG CAP PO SCH (09:17)
[2018-11-21] MEDS: ASCORBIC ACID 500 MG TAB PO SCH (09:17)
[2018-11-21] MEDS: cloZAPine 100 MG TAB PO SCH ×2 (09:17→20:26)
[2018-11-21] MEDS: LACTULOSE 20 GM/30 ML UDC PO SCH (09:17)
--- NOTE | 2018-11-21 09:19 | NUR ---
ADMINISTERED SCHEDULED MEDICATIONS. PT TOLERATED WELL. NO OTHER NEEDS AT THIS TIME. NO SIGNS OF DISTRESS NOTED.
[2018-11-21] MEDS ORDERED: MAGNESIUM OXIDE 400 MG TAB PO SCH (09:56)
--- NOTE | 2018-11-21 10:12 | NUR ---
PT NOTES CHART REVIEWED AND CLEARED FOR PT BY NURSING. PATIENT SUPINE RESTING AND CONFUSED AT THIS TIME DESPITE REORIENTATION PROVIDED. PATIENT APPEARS IRRITABLE AND UNABLE TO RECEIVE CONSENT FOR THERAPY FROM PATIENT. FURTHER ATTEMPTS FOR ACTIVE PARTICIPATION IN THERAPY, DECLINES PARTICIPATION DESPITE MUCH EDUCATION/MOTIVATION PROVIDED. WILL FOLLOW UP PATIENT NEXT THERAPY SESSION IF POSSIBLE, NURSING AT BEDSIDE. Addendum: 11/21/18 at 1020 by Britta Lynn PT PHYSICAL THERAPY CO-SIGN The Physical Therapy Progress Notes documented by [place] Worker have been reviewed. I CONCUR W/FITNESS COACH NOTE; WILL FOLLOW UP WITH Pt Reviewed/Co-Signed by: Britta Lynn, PARVIN Documentation Done by: ARACELY FENG PTA
--- NOTE | 2018-11-21 10:19 | NUR ---
ADMINISTERED SCHEDULED MAG-OX TABLET FOR MAGNESIUM 1.7. PT TOLERATED WELL.
[2018-11-21] MEDS: DEXT 5% /NACL 0.9% 1,000 ML IV SCH (12:02)
--- NOTE | 2018-11-21 12:07 | NUR ---
PT STABLE, SLEEPING, BUT EASILY AROUSABLE. IV BAG CHANGED. NO OTHER NEEDS AT THIS MOMENT.
--- NOTE | 2018-11-21 14:00 | NUR ---
PT STABLE, SLEEPING COMFORTABLY BUT EASILY AROUSABLE. NO SIGNS OF DISTRESS NOTED.
[2018-11-21 16:00] VITALS: BP 121/73
--- NOTE | 2018-11-21 16:30 | NUR ---
VITAL SIGNS TAKEN, PT IN STABLE CONDITION, SLEEPING BUT EASILY AROUSABLE.
--- NOTE | 2018-11-21 17:40 | NUR ---
PT ON CLEAR LIQUID DIET, EATING DINNER. NO OTHER NEEDS AT THIS TIME.
--- NOTE | 2018-11-21 19:21 | NUR ---
RECEIVED BEDSIDE REPORT FROM DAY SHIFT RN, PATIENT IN BED, AAOX1 TO PERSON. IV IN LEFT FA 22G INFUSING DEXTROSE AT 70 ML/HR, DAY SHIFT NURSE STATED PATIENT MAY HAVE SURGERY TOMORROW IF 2 MD SIGNS THE CONSENT. DAY SHIFT NURSE STATED THE DOCTORS ARE COLLABORATING TO DECIDE WHAT TO DO WITH THE PATIENT. BED ALARM ON WILL CONTINUE TO MONITOR
--- NOTE | 2018-11-21 19:21 | NUR ---
ENDORSED PT TO RN SUMMER FOR CONTINUITY OF CARE. PT STABLE, SLEEPING, BUT EASILY AROUSABLE.
[2018-11-21] MEDS: SENNA 8.6 MG TAB PO SCH (20:25)
[2018-11-21] MEDS: traZODone 50 MG TAB PO SCH (20:26)
--- NOTE | 2018-11-21 20:33 | NUR ---
DUE MEDICATIONS GIVEN PATIENT TOLERATED WELL, WILL CONTINUE TO MONITOR.
[2018-11-22] VITALS: BP 118/60
--- NOTE | 2018-11-22 01:08 | NUR ---
V/S TAKEN ALL WITHIN BASELINE. NO SIGNS OF DISTRESS. PATIENT NOT ON BIG BOARD FOR PRE OP CHECKLIST.
--- NOTE | 2018-11-22 02:44 | NUR ---
PATIENT SLEEPING IN BED, NO SIGNS OF DISTRESS, WILL CONTINUE TO MONITOR. BED ALARM ON.
[2018-11-22] MEDS: DEXT 5% /NACL 0.9% 1,000 ML IV SCH ×2 (04:06→19:26)
--- NOTE | 2018-11-22 04:30 | NUR ---
CHANGED IV FLUID INFUSING AT 70 ML/HR.
[2018-11-22 05:35] LABS: HEMATOCRIT 26.2 % (36-52); HEMOGLOBIN 7.9 g/dL (12.0-18.0); MEAN CORPUSCULAR HEMOGLOBIN 22 pg (27-31); MEAN CORPUSCULAR HGB CONC 30 g/dL (33-37); MEAN CORPUSCULAR VOLUME 74.3 fL (80-94); PLATELET COUNT (AUTO) 273 K/uL (140-450); RED BLOOD CELL COUNT(AUTO) 3.53 MIL/uL (4.20-6.10); RED CELL DISTRIBUTION WIDTH 20.4 % (11.6-13.7); WHITE BLOOD COUNT (AUTO) 8.5 K/uL (4.8-10.8)
[2018-11-22 06:23] LABS: BASOPHILS % (MANUAL) 0 % (0-2); EOSINOPHILS % (MANUAL) 1 % (0-4); LYMPHOCYTES % (MANUAL) 15 % (20-46); MONOCYTES % (MANUAL) 8 % (5-12)
[2018-11-22 06:26] LABS: ANION GAP 8.9 (8-16); CREATININE 0.5 mg/dL (0.7-1.3); POTASSIUM 3.9 mmol/L (3.5-5.1)
--- NOTE | 2018-11-22 06:30 | NUR ---
PATIENT SLEEPING IN BED, CALL LIGHT WITHIN REACH, BED ALARM ON.
--- NOTE | 2018-11-22 07:27 | NUR ---
ENDORSED PATIENT TO DAY SHIFT NURSE, PATIENT STABLE.
--- NOTE | 2018-11-22 07:27 | NUR ---
RECEIVED PATIENT REPORT AT BEDSIDE. PATIENT IS ASLEEP BUT AROUSABLE. NO S/S OF DISTRESS NOTED AT THIS TIME. FALL AND SEIZURE PRECAUTIONS IN PLACE. WILL CONTINUE TO MONITOR
[2018-11-22 07:49] VITALS: BP 123/91
[2018-11-22] MEDS: lamoTRIgine 25 MG TAB PO SCH ×2 (08:14→21:29)
[2018-11-22] MEDS: TAMSULOSIN 0.4 MG CAP PO SCH (08:16)
[2018-11-22] MEDS: busPIRone 5 MG TAB PO SCH ×2 (08:16→21:27)
[2018-11-22] MEDS: ASCORBIC ACID 500 MG TAB PO SCH (08:16)
[2018-11-22] MEDS: MAGNESIUM OXIDE 400 MG TAB PO SCH (08:16)
--- NOTE | 2018-11-22 08:16 | NUR ---
ADMINISTERED DUE MEDICATIONS. PATIENT TOLERATED WELL
[2018-11-22] MEDS: cloZAPine 100 MG TAB PO SCH ×2 (08:17→21:30)
[2018-11-22] MEDS: LACTULOSE 20 GM/30 ML UDC PO SCH (08:18)
[2018-11-22] MEDS: POTASSIUM CHLORIDE 20% 40 MEQ/15 ML UDC GT SCH (08:19)
[2018-11-22] MEDS: SODIUM FERRIC GLUCONATE 125 MG in NACL 0.9% 100 ML IV SCH ×2 (09:47→21:23)
--- NOTE | 2018-11-22 15:34 | NUR ---
PT IS ASLEEP IN BED. NO S/S OF DISTRESS NOTED
[2018-11-22 16:19] VITALS: BP 143/71
--- NOTE | 2018-11-22 19:29 | NUR ---
PT REPORT GIVEN AT BEDSIDE. PT ENDORSED IN STABLE CONDITION
--- NOTE | 2018-11-22 20:55 | NUR ---
IV ACCESS PULLED OUT. CATHETER INTACT. STARTED A NEW IV SITE LT FA#22. CLEAR AND PATENT.
--- NOTE | 2018-11-22 21:00 | NUR ---
TOOK ALL NIGHT MEDS. TOLERATED WELL. ALSO HAD SOME JELLO AND JUICE. NO VOMITING NOTED.
[2018-11-22] MEDS: traZODone 50 MG TAB PO SCH (21:28)
[2018-11-22] MEDS: SENNA 8.6 MG TAB PO SCH (21:29)
[2018-11-23 00:15] VITALS: BP 106/46
--- NOTE | 2018-11-23 00:30 | NUR ---
PT VITAL SIGNS STABLE. NO C/O ANY DISCOMFORT NOR PAIN NOTED.
--- NOTE | 2018-11-23 02:00 | NUR ---
MADE ROUNDS. PT IS ASLEEP. NO S/S OF ANY DISTRESS NOTED.
--- NOTE | 2018-11-23 05:30 | NUR ---
PT HAD A SMALL AMOUNT BROWNISH SOFT STOOL . CLEANED AND KEPT DRY.
[2018-11-23 06:17] LABS: HEMATOCRIT 27.6 % (36-52); HEMOGLOBIN 8.2 g/dL (12.0-18.0); MEAN CORPUSCULAR HEMOGLOBIN 22 pg (27-31); MEAN CORPUSCULAR HGB CONC 30 g/dL (33-37); MEAN CORPUSCULAR VOLUME 74.8 fL (80-94); PLATELET COUNT (AUTO) 260 K/uL (140-450); RED BLOOD CELL COUNT(AUTO) 3.69 MIL/uL (4.20-6.10); RED CELL DISTRIBUTION WIDTH 20.5 % (11.6-13.7); WHITE BLOOD COUNT (AUTO) 6.6 K/uL (4.8-10.8)
[2018-11-23 06:41] LABS: ANION GAP 6.7 (8-16); CARBON DIOXIDE 32.3 mmol/L (21-32); CREATININE 0.5 mg/dL (0.7-1.3)
[2018-11-23 07:01] LABS: LYMPHOCYTES % (MANUAL) 28 % (20-46); MONOCYTES % (MANUAL) 4 % (5-12)
--- NOTE | 2018-11-23 07:30 | NUR ---
ENDORSED PT IN STABLE CONDITION TO AM NURSE.
--- NOTE | 2018-11-23 07:31 | NUR ---
RECEIVED REPORT FROM PM NURSE AT BEDSIDE. PT SLEEPING ON HIS BEDSIDE. AOX2-3. HAS LFT FA 22G, NS INFUSING AT 70 ML/HR. SIDE RAILS PADED FOR SEIZURE PRECAUTION. CALL LIGHT WITHIN PT REACH. NO SIGN OF DISTRESS NOTED. INTRODUCED SELF AND UPDATED BOARD. PT IS ON FALL RISK, USES BEDSIDE URINAL. BED ALARM ON. INFORMED PT TO USE CALL LIGHT FOR ANY HELP. NO SIGN OF DISTRESS NOTED. WILL CONTINUE TO MONITOR PT.
[2018-11-23 08:00] VITALS: BP 108/52
[2018-11-23] MEDS: cloZAPine 100 MG TAB PO SCH ×2 (09:00→21:30)
[2018-11-23] MEDS: LACTULOSE 20 GM/30 ML UDC PO SCH (10:00)
--- NOTE | 2018-11-23 10:00 | NUR ---
CHECKED ON PT. ADMINISTERED MEDS TO PT ORDERED. TOLERATED WELL. P;T AOX1-2. STATES HE DON'T KNOW WHO HE IS AND WHERE HE IS AT. PT USES URINAL AT BEDSIDE. CALL LIGHT WITHIN REACH. NO SIGN OF DISTRESS NOTED. ALL SAFETY MEASURE IN PLACE. WILL CONTINUE TO MONITOR PT.
[2018-11-23] MEDS: busPIRone 5 MG TAB PO SCH ×2 (10:01→21:30)
[2018-11-23] MEDS: POTASSIUM CHLORIDE 20% 40 MEQ/15 ML UDC GT SCH (10:01)
[2018-11-23] MEDS: TAMSULOSIN 0.4 MG CAP PO SCH (10:02)
[2018-11-23] MEDS: lamoTRIgine 25 MG TAB PO SCH ×2 (10:02→21:30)
[2018-11-23] MEDS: MAGNESIUM OXIDE 400 MG TAB PO SCH (10:02)
[2018-11-23] MEDS: SODIUM FERRIC GLUCONATE 125 MG in NACL 0.9% 100 ML IV SCH ×2 (10:03→21:30)
[2018-11-23] MEDS: ASCORBIC ACID 500 MG TAB PO SCH (10:03)
[2018-11-23] MEDS: DEXT 5% /NACL 0.9% 1,000 ML IV SCH (10:23)
--- NOTE | 2018-11-23 10:40 | NUR ---
[employer] Tungsten Arc Note: Per cycle manager Valentine of [facility] / , patient does not have an existing Advance Directive for healthcare nor POLST.
--- NOTE | 2018-11-23 12:28 | NUR ---
CHECKED ON PT. PT EATING HIS LUNCH. UP IN HIS BED. DENIES ANY PAIN . NO SIGN OF DISTRESS NOTED. WILL CONTINUE TO MONITOR PT.
--- NOTE | 2018-11-23 12:58 | NUR ---
11/23/18 RD INITIAL ASSESSMENT COMPLETED PLEASE REFER TO NUTRITION ASSESSMENT UNDER CARE ACTIVITY FOR ESTIMATED NUTRITIONAL NEEDS. 1. RECOMMEND CLEAR LIQUID + ENSURE CLEAR TID DIET UNTIL MEDICALLY APPROPRIATE TO BEGIN NUTRITION 2. WHEN/IF PATIENT MEDICALLY STABLE TO BEGIN NUTRITION, RECOMMEND MECHANICAL SOFT DIET 3. RD TO REATTEMPT ANEMIA EDUCATION 4. RD TO FOLLOW-UP 2-3 DAYS, HIGH RISK TERESA LIGHT, RD
--- NOTE | 2018-11-23 13:42 | NUR ---
1220 MET WITH PATIENT AT BEDSIDE AND DISCUSSED WITH HIM THAT THE DR IS RECOMMENDING THAT HE HAVE SURGERY AND PATIENT STATED "NO IT'LL HURT". ASKED PATIENT TO CLARIFY WHAT HE MEANT BY IT'LL HURT AND HE STATED "THE SURGERY WILL HURT WHERE THEY'LL OPEN ME UP NO I DON'T WANT IT". ASKED PATIENT IF HE UNDERSTANDS THAT IF HIS INTESTINE BECOMES BLOCKED HE MOST LIKELY WILL NOT BE ABLE TO EAT AND COULD EXPERIENCE N/V AND PATIENT STATED "NO I DON'T WANT IT" THEN PATIENT ASKED FOR HIS LUNCH.
--- NOTE | 2018-11-23 14:57 | NUR ---
CHECKED ON PT. SLEEPING ON HIS BED. NO SIGN OF DISTRESS NOTED. PT IS ON SEIZURE PRECAUTION, HAS THE SIDE RAILS PADED. CALL LIGHT WITHIN PT REACH. BED AT LOWER POSITION. ALL SAFETY MEASURE IN PLACE. WILL CONTINUE TO MONITOR PT.
[2018-11-23 16:00] VITALS: BP 130/54
--- NOTE | 2018-11-23 16:30 | NUR ---
CHECKED ON PT. LYING ON HIS BED. GAVE APPLE JUICE AN JELLO. DENIES ANY DISCOMFORT. ALL SAFETY MEASURE IN PLACE. WILL CONTINUE TO MONITOR PT.
--- NOTE | 2018-11-23 19:15 | NUR ---
ENDORSED PT TO PM NURSE AT BEDSIDE. PT IN STABLE CONDITION.
--- NOTE | 2018-11-23 19:15 | NUR ---
RECEIVED BEDSIDE REPORT FROM RN MATT, PATIENT IN BED, AAOX1 TO PERSON, ON SEIZURE PRECAUTIONS, IV IN LEFT FA 22 G, WRAPPED INFUSING D5 AND NS AT 70 ML/HR. PATIENT ON RA, NO SIGNS OF DISTRESS, EXPLAINED PLAN OF CARE, BED ALARM ON, CALL LIGHT WITHIN REACH, WILL CONTINUE TO MONITOR. BP 115/60 HR 75.
[2018-11-23] MEDS: SENNA 8.6 MG TAB PO SCH (21:30)
[2018-11-23] MEDS: traZODone 50 MG TAB PO SCH (21:30)
--- NOTE | 2018-11-23 21:30 | NUR ---
DUE MEDICATIONS GIVE, PATIENT TOLERATED WELL. REPOSITIONED FOR COMFORT WILL CONTINUE TO MONITOR. BED ALARM ON.
[2018-11-24] VITALS: BP 110/70
--- NOTE | 2018-11-24 00:20 | NUR ---
V/S TAKEN ALL WITHIN BASELINE, IVF INFUSING AT 70 ML/HR. BED ALARM ON.
[2018-11-24] MEDS: DEXT 5% /NACL 0.9% 1,000 ML IV SCH ×2 (00:24→15:07)
--- NOTE | 2018-11-24 02:10 | NUR ---
PATIENT SLEEPING IN BED, IVF INFUSING AT 70 ML/HR. BED ALARM ON, WILL CONTINUE FREQUENT CHECKS.
--- NOTE | 2018-11-24 04:15 | NUR ---
SLEEPING IN BED, BED ALARM ON.
--- NOTE | 2018-11-24 06:00 | NUR ---
PATIENT ASLEEP IN BED, BED ALARM ON.
--- NOTE | 2018-11-24 07:10 | NUR ---
ENDORSED PATIENT TO DAY SHIFT NURSE, PATIENT STABLE.
--- NOTE | 2018-11-24 07:11 | NUR ---
RECEIVED REPORT FROM PM NURSE AT BEDSIDE. PTS IVF INFUSING WELL. NO SIGN OF DISTRESS NOTED. PT SLEEPING ON HIS BED. ALL SAFETY MEASURE IN PLACE. WILL CONTINUE TO MONITOR PT.
[2018-11-24 07:28] LABS: ANION GAP 13.8 (8-16); CARBON DIOXIDE 28.4 mmol/L (21-32); POTASSIUM 4.2 mmol/L (3.5-5.1)
[2018-11-24 07:29] LABS: CREATININE 0.4 mg/dL (0.7-1.3)
[2018-11-24 07:34] LABS: PHOSPHORUS 3.4 mg/dL (2.5-4.9)
[2018-11-24 07:54] VITALS: BP 127/52
[2018-11-24 08:52] LABS: HEMATOCRIT 29.1 % (36-52); HEMOGLOBIN 8.7 g/dL (12.0-18.0); MEAN CORPUSCULAR HEMOGLOBIN 23 pg (27-31); MEAN CORPUSCULAR HGB CONC 30 g/dL (33-37); MEAN CORPUSCULAR VOLUME 76.1 fL (80-94); PLATELET COUNT (AUTO) 304 K/uL (140-450); RED BLOOD CELL COUNT(AUTO) 3.82 MIL/uL (4.20-6.10); RED CELL DISTRIBUTION WIDTH 21.1 % (11.6-13.7); WHITE BLOOD COUNT (AUTO) 7.5 K/uL (4.8-10.8)
[2018-11-24] MEDS: SODIUM FERRIC GLUCONATE 125 MG in NACL 0.9% 100 ML IV SCH ×2 (09:00→20:45)
[2018-11-24 09:19] LABS: LYMPHOCYTES % (MANUAL) 18 % (20-46); MONOCYTES % (MANUAL) 5 % (5-12)
--- NOTE | 2018-11-24 09:30 | NUR ---
ADMINISTERED MEDS TO PT. TOLERATED WELL. TOOK ALL HIS MEDS. IV SITE INFILTRATED. CHANGE THE IV SITE TO RT FA 22 G. SIGNED AND DATED . IVF INFUSING WELL. ALL SAFETY MEASURE IN PLACE. NO SIGN OF DISTRESS NOTED. INFORMED PT TO USE CALL LIGHT FOR NAY HELP. WILL CONTINUE TO MONITOR PT.
[2018-11-24] MEDS: cloZAPine 100 MG TAB PO SCH ×2 (09:34→20:46)
[2018-11-24] MEDS: LACTULOSE 20 GM/30 ML UDC PO SCH (09:35)
[2018-11-24] MEDS: ASCORBIC ACID 500 MG TAB PO SCH (09:35)
[2018-11-24] MEDS: lamoTRIgine 25 MG TAB PO SCH ×2 (09:35→20:45)
[2018-11-24] MEDS: MAGNESIUM OXIDE 400 MG TAB PO SCH (09:35)
[2018-11-24] MEDS: busPIRone 5 MG TAB PO SCH ×2 (09:36→20:46)
[2018-11-24] MEDS: TAMSULOSIN 0.4 MG CAP PO SCH (09:36)
[2018-11-24] MEDS: POTASSIUM CHLORIDE 20% 40 MEQ/15 ML UDC GT SCH (09:36)
--- NOTE | 2018-11-24 12:00 | NUR ---
CHECKED ON PT . PUT EXTRA BLANKET ON PT. PT SLEEPING AT THIS TIME. IVF INFUSING WELL. NO SIGN OF DISTRESS NOTED IN PT. WILL CONTINUE TO MONITOR PT.
--- NOTE | 2018-11-24 13:18 | NUR ---
LATE ENTRY FOR 11/23/18 REQUEST WAS RECEIVED FOR [employer] COMMITTEE IN REGARDS TO PATIENT PER SURGEON REQUIRES SURGERY AND PER PSYCHIATRIST PATIENT DOES NOT HAVE THE CAPACITY TO MAKE MEDICAL DECISIONS AND PATIENT IS UN-REPRESENTED. 1545 [employer] REFERRAL FORM AND CLINICAL DOCUMENTATION INCLUDING H&P, CONSULTS, GI PROCEDURE REPORT AND PHYSICIAN PROGRESS NOTES EMAIL TO DR Kg [facility] DEVELOPMENT SPECIALIST AND DR Moises BRADSHAW DELIVERER MERCHANDISE FOR REVIEW.
--- NOTE | 2018-11-24 14:34 | NUR ---
CHECKED ON PT. SLEEPING IN HIS BED. NO SIGN OF DISTRESS NOTED. ALL SAFETY MEASURE IN PLACE. WILL CONTINUE TO MONITOR PT.
[2018-11-24 16:00] VITALS: BP 131/83
--- NOTE | 2018-11-24 16:30 | NUR ---
CHECKED ON PT. RECORDED VS. PT STABLE AND IS RESTING COMFORTABLY IN HIS BED. PROVIDED APPLE JUICE AND JELLO TO PT. IVF INFUSING WELL. NO SIGN OF DISTRESS NOTED AT THIS POINT . ALL SAFETY MEASURE IN PLACE. WILL CONTINUE TO MONITOR PT.
--- NOTE | 2018-11-24 19:20 | NUR ---
ENDORSED PT TO PM NURSE AT BEDSIDE. PT IN STABLE CONDITION.
--- NOTE | 2018-11-24 19:30 | NUR ---
ASSUMED CARE OF PATIENT, AWAKE, CONFUSED, ANSWERED INAPPROPRIATE. NO COMPLAINS. NO DISTRESS NOTED. CARE BOARD UPDATED. CALL LIGHT WITHIN REACH.
[2018-11-24] MEDS: SENNA 8.6 MG TAB PO SCH (20:45)
[2018-11-24] MEDS: traZODone 50 MG TAB PO SCH (20:46)
--- NOTE | 2018-11-24 21:00 | NUR ---
DUE MEDS GIVEN. PERICARE DONE. VOIDING WELL. BM NOTED. CALL LIGHT WITHIN REACH.
--- NOTE | 2018-11-25 | NUR ---
VITAL SIGNS STABLE. AFEBRILE. NO COMPLAINS. CALL LIGHT WITHIN REACH.
[2018-11-25 00:19] VITALS: BP 128/64
[2018-11-25] MEDS: DEXT 5% /NACL 0.9% 1,000 ML IV SCH (05:20)
--- NOTE | 2018-11-25 07:29 | NUR ---
ENDORSED CARE AT BEDSIDE WITH AURORA RN, PATIENT IN STABLE CONDITION.
--- NOTE | 2018-11-25 07:34 | NUR ---
RECEIVED BEDSIDE REPORT FROM TOXICOLOGY TEACHER RN FOR CONTINUITY OF CARE. PT IN STABLE CONDITION. AOX2. DENIES PAIN AND DISCOMFORT. NO S/S DISTRESS. RESPIRATIONS EVEN AND UNLABORED. HEART RHYTHM REGULAR. SKIN INTACT. BOWEL SOUNDS PRESENT. PER TOXICOLOGY TEACHER RN, PT IS AMBULATORY WITHOUT ASSIST. PATIENT HAD BM LAST NIGHT. IV SITE PATENT AND ASYMPTOMATIC, INFUSING IVF PER MD ORDERS. ALL SAFETY PRECAUTIONS IN PLACE, WILL CONTINUE TO MONITOR.
[2018-11-25 08:00] VITALS: BP 127/62
--- NOTE | 2018-11-25 08:32 | NUR ---
PATIENT HAS EATEN BREAKFAST- 100%. BLOOD GLUCOSE LOW ON MORNING LABS.
[2018-11-25] MEDS: POTASSIUM CHLORIDE 20% 40 MEQ/15 ML UDC GT SCH (09:26)
[2018-11-25] MEDS: SODIUM FERRIC GLUCONATE 125 MG in NACL 0.9% 100 ML IV SCH ×2 (09:26→20:18)
[2018-11-25] MEDS: lamoTRIgine 25 MG TAB PO SCH ×2 (09:26→20:18)
[2018-11-25] MEDS: LACTULOSE 20 GM/30 ML UDC PO SCH (09:26)
[2018-11-25] MEDS: ASCORBIC ACID 500 MG TAB PO SCH (09:26)
[2018-11-25] MEDS: TAMSULOSIN 0.4 MG CAP PO SCH (09:27)
[2018-11-25] MEDS: cloZAPine 100 MG TAB PO SCH ×2 (09:27→20:19)
--- NOTE | 2018-11-25 09:33 | NUR ---
ADMINISTERED SCHEDULED MEDICATIONS. PT RESTING COMFORTABLY IN BED.
[2018-11-25 11:18] LABS: HEMATOCRIT 29.9 % (36-52); HEMOGLOBIN 9.1 g/dL (12.0-18.0); MEAN CORPUSCULAR HEMOGLOBIN 23 pg (27-31); MEAN CORPUSCULAR HGB CONC 30 g/dL (33-37); MEAN CORPUSCULAR VOLUME 76.3 fL (80-94); PLATELET COUNT (AUTO) 284 K/uL (140-450); RED BLOOD CELL COUNT(AUTO) 3.92 MIL/uL (4.20-6.10); RED CELL DISTRIBUTION WIDTH 21.3 % (11.6-13.7); WHITE BLOOD COUNT (AUTO) 8.6 K/uL (4.8-10.8)
[2018-11-25 11:42] LABS: ANION GAP 9.9 (8-16); CARBON DIOXIDE 30.1 mmol/L (21-32); CREATININE 0.5 mg/dL (0.7-1.3)
[2018-11-25 11:45] LABS: MAGNESIUM 1.9 mg/dL (1.8-2.4); PHOSPHORUS 2.5 mg/dL (2.5-4.9)
[2018-11-25 11:56] LABS: EOSINOPHILS % (MANUAL) 1 % (0-4); LYMPHOCYTES % (MANUAL) 15 % (20-46); MONOCYTES % (MANUAL) 5 % (5-12)
[2018-11-25 12:00] VITALS: BP 128/63
--- NOTE | 2018-11-25 15:34 | NUR ---
PT RESTING IN BED, AROUSABLE BY VOICE. NO C/O PAIN OR DISCOMFORT. STILL CONFUSED AOX1. NO S/S DISTRESS. ALL SAFETY PRECAUTIONS IN PLACE, WILL CONTINUE TO MONITOR.
[2018-11-25 16:00] VITALS: BP 132/63
--- NOTE | 2018-11-25 19:27 | NUR ---
ENDORSED POC TO COMMODITY ANALYST RN. PT IN STABLE CONDITION.
--- NOTE | 2018-11-25 19:28 | NUR ---
REPORT RECEIVED FROM AM NURSE AT BEDSIDE. PT IN STABLE CONDITION. AAOX4. INTRODUCED SELF TO PT. BOARD UPDATED. PT HAS COMPLAINTS OF PAIN. WILL MEDICATE. NO SOB. AFEBRILE. IV SITE R FA 22G RUNNING D5NS@10ML/HR PATENT AND INTACT. SKIN WARM, DRY, AND INTACT WITH NO OPEN WOUNDS. BED LOCKED IN LOW POSITION. CALL DESAI WITHIN REACH. SAFETY PRECAUTIONS IN PLACE.
[2018-11-25] MEDS ORDERED: HYDROcodone/APAP 7.5/325 MG 1 TAB PO PRN (19:55)
[2018-11-25] MEDS: traZODone 50 MG TAB PO SCH (20:18)
--- NOTE | 2018-11-25 20:18 | NUR ---
CLOZARIL, TRAZODONE, LAMICTAL, AND SENNA GIVEN PO. FARIBA ABRAMS AND MIKAYLA. PT TOLERATING WELL. Addendum: 11/25/18 at 2138 by Lazaro Irizarry RN NORCO GIVEN FOR 03/15 PAIN. PT TOLERATED WELL.
[2018-11-25] MEDS: SENNA 8.6 MG TAB PO SCH (20:19)
--- NOTE | 2018-11-25 21:15 | NUR ---
PT LAYING IN BED. NO S/S OF DISTRESS NOTED. WILL CONTINUE TO MONITOR.
[2018-11-26] VITALS: BP 101/42
--- NOTE | 2018-11-26 | NUR ---
PT SLEEPING COMFORTABLY BUT AROUSABLE. NO S/S OF DISTRESS NOTED. WILL CONTINUE TO MONITOR.
--- NOTE | 2018-11-26 02:15 | NUR ---
PT SLEEPING BUT AROUSABLE. NO S/S OF DISTRESS NOTED. BREATHING EVEN, UNLABORED, AND WNL. WILL CONTINUE TO MONITOR.
--- NOTE | 2018-11-26 03:40 | NUR ---
PT SLEEPING COMFORTABLY IN BED. NO S/S OF DISTRESS NOTED. BREATHING EVEN, UNLABORED, AND WNL. WILL CONTINUE TO MONITOR.
[2018-11-26] MEDS: DEXT 5% /NACL 0.9% 1,000 ML IV SCH (05:17)
--- NOTE | 2018-11-26 05:45 | NUR ---
PT DENIED LAB DRAWS.
--- NOTE | 2018-11-26 07:00 | NUR ---
REPORT GIVEN TO AM NURSE AT BEDSIDE. PT IN STABLE CONDITION.
--- NOTE | 2018-11-26 07:01 | NUR ---
RECEIVED BEDSIDE REPORT FROM LYNNETTE SOLIS. PT STABLE, SLEEPING, BUT EASILY AROUSABLE. NO SIGNS OF DISTRESS NOTED. NO REDNESS, SWELLING, OR INFLAMMATION NOTED ON IV SITE. BED IN LOW POSITION. CALL LIGHT WITHIN REACH. SAFETY MEASURES IN PLACE. PLAN OF CARE REVIEWED.
[2018-11-26 08:00] VITALS: BP 134/68
[2018-11-26] MEDS: LACTULOSE 20 GM/30 ML UDC PO SCH (10:38)
[2018-11-26] MEDS: POTASSIUM CHLORIDE 20% 40 MEQ/15 ML UDC GT SCH (10:38)
[2018-11-26] MEDS: lamoTRIgine 25 MG TAB PO SCH ×2 (10:39→21:00)
[2018-11-26] MEDS: TAMSULOSIN 0.4 MG CAP PO SCH (10:39)
[2018-11-26] MEDS: ASCORBIC ACID 500 MG TAB PO SCH (10:40)
[2018-11-26] MEDS: cloZAPine 100 MG TAB PO SCH (10:40)
[2018-11-26] MEDS: SODIUM FERRIC GLUCONATE 125 MG in NACL 0.9% 100 ML IV SCH ×2 (10:41→21:00)
--- NOTE | 2018-11-26 10:48 | NUR ---
ADMINISTERED SCHEDULED MEDICATIONS. PT TOLERATED WELL. NO OTHER NEEDS AT THIS TIME.
--- NOTE | 2018-11-26 11:37 | NUR ---
Spoke with Keke from [facility] informed her that the pt has no discharge order yet.
[2018-11-26 12:48] LABS: HEMATOCRIT 28.5 % (36-52); HEMOGLOBIN 8.6 g/dL (12.0-18.0); MEAN CORPUSCULAR HEMOGLOBIN 23 pg (27-31); MEAN CORPUSCULAR HGB CONC 30 g/dL (33-37); MEAN CORPUSCULAR VOLUME 76.5 fL (80-94); PLATELET COUNT (AUTO) 250 K/uL (140-450); RED BLOOD CELL COUNT(AUTO) 3.73 MIL/uL (4.20-6.10); WHITE BLOOD COUNT (AUTO) 7.6 K/uL (4.8-10.8)
[2018-11-26 13:03] LABS: CARBON DIOXIDE 29.2 mmol/L (21-32); CREATININE 0.6 mg/dL (0.7-1.3); POTASSIUM 3.2 mmol/L (3.5-5.1)
[2018-11-26 13:08] LABS: MAGNESIUM 1.7 mg/dL (1.8-2.4); PHOSPHORUS 1.8 mg/dL (2.5-4.9)
--- NOTE | 2018-11-26 13:15 | NUR ---
PT REPOSITIONED, LINENS AND GOWN CHANGED. PT TOLERATED WELL.
[2018-11-26 13:26] LABS: EOSINOPHILS % (MANUAL) 2 % (0-4); LYMPHOCYTES % (MANUAL) 14 % (20-46); MONOCYTES % (MANUAL) 2 % (5-12)
--- NOTE | 2018-11-26 15:28 | NUR ---
11/26/18 RD FOLLOW UP COMPLETED PLEASE REFER TO NUTRITION ASSESSMENT UNDER CARE ACTIVITY FOR ESTIMATED NUTRITIONAL NEEDS. 1. CONTINUE PUREE DIET TOLERATED 2. IF PATIENT PASSES SWALLOW EVALUATION WELL, CONSIDER ADVANCING DIET TO LOW FIBER WITH RECOMMENDED FOOD TEXTURES BY SPEECH THERAPIST. 3. RD TO FOLLOW-UP 3-5 DAYS, MODERATE RISK TERESA LIGHT RD
[2018-11-26 16:00] VITALS: BP 123/67
--- NOTE | 2018-11-26 16:30 | NUR ---
VITAL SIGNS TAKEN. PT STABLE, AWAKE, AND ALERT. LINENS AND GOWN CHANGED. PT REPOSITIONED.
--- NOTE | 2018-11-26 19:10 | NUR ---
ENDORSED PT TO LYNNETTE CARRANZA FOR CONTINUITY OF CARE. PT STABLE, AWAKE, AND ALERT.
--- NOTE | 2018-11-26 19:10 | NUR ---
RECEIVED REPORT FORM KYLE STALLINGS RN DAYSHIFT NURSE FOR CONTINUITY OF CARE, PT IN STABLE CONDITION.
--- NOTE | 2018-11-26 20:00 | NUR ---
PT IN BED AND REFUSING V/S WELL MEDICATION. PT DENIES PAIN AND KEEPS SAYING "LEAVE ME ALONE". IV SITE IS INTACT AND RUNNING N/S 10MS/HR.
[2018-11-26] MEDS: traZODone 50 MG TAB PO SCH (21:00)
[2018-11-26] MEDS: SENNA 8.6 MG TAB PO SCH (21:00)
[2018-11-26] MEDS ORDERED: cloZAPine 100 MG TAB PO SCH (21:00)
--- NOTE | 2018-11-26 21:30 | NUR ---
PT IN BED CAN MAXIMO ASSISTED PRIMARY NURSE. PT CLEAN AND DRY BUT BEDSHEETS CHANGED AND PT MADE COMFORTABLE. PT AT FIRST DECLINED MEDS AND VITAL SIGNS, BUT DID COOPERATE. ALL DUE P.O. MEDS GIVEN WITH APPLE SAUCE. PT HAS FERRUS SULFATE IV HUNG AND RUNNING ORDERED. V/S FOLLOWS T 97.2 P 66 R 18 B/P 123/67 02 97% ON R/A. BED LOW POSITION AND ALL FALLS PRECAUTIONS IN PLACE.
[2018-11-26] MEDS ORDERED: SODIUM FERRIC GLUCONATE 12.5 MG/ML AMP IV ONE (21:40)
[2018-11-26] MEDS ORDERED: PNEUMOCOCCAL VACCINE 23 MCG/0.5 ML VIAL IMVAC PRN (22:20)
[2018-11-26] MEDS ORDERED: INFLUENZA VIRUS VACCINE QUAD 0.5 ML SYR IMVAC PRN (22:20)
[2018-11-27] VITALS: BP 128/67
--- NOTE | 2018-11-27 01:30 | NUR ---
PT ASLEEP NO S/S OF PAIN OR DISTRESS NOTED. ALL FALLS PRECAUTIONS IN PLACE.
[2018-11-27] MEDS: DEXT 5% /NACL 0.9% 1,000 ML IV SCH (05:17)
--- NOTE | 2018-11-27 06:18 | NUR ---
PT TURNED AND CHANGED. IV SITE INTACT AND RUNNING AT 10MLS/HR. PT IN BED SLEEPING NO S/S OF PAIN OR DISTRESS NOTED.
[2018-11-27] MEDS ORDERED: SODIUM PHOS / POTASSIUM PHOS 1 PKT PDR PO SCH (06:25)
[2018-11-27] MEDS ORDERED: MAGNESIUM OXIDE 400 MG TAB PO SCH (06:25)
--- NOTE | 2018-11-27 07:15 | NUR ---
RECEIVED BEDSIDE REPORT FROM FINANCIAL REPORTING SPECIALIST RN. PT SLEEPING, BUT EASILY AROUSED BY NAME, OX1. NO S/S OF DISTRESS NOTED. DENIES PAIN, SKIN INTACT. IV SITE TO THE RIGHT FA, 22G, PATENT AND INTACT. BED IN LOW POSITION. CALL LIGHT WITHIN REACH. SAFETY MEASURES IN PLACE. PLAN OF CARE REVIEWED.
--- NOTE | 2018-11-27 07:20 | NUR ---
GAVE REPORT TO JENNIFER CHURCH DAYSHIFT NURSE AT BEDSIDE FOR CONTINUITY OF CARE, PT IN STABLE CONDITION.
[2018-11-27 07:40] LABS: ANION GAP 6.8 (8-16); CARBON DIOXIDE 32.2 mmol/L (21-32); CREATININE 0.6 mg/dL (0.7-1.3)
[2018-11-27 07:44] LABS: MAGNESIUM 1.9 mg/dL (1.8-2.4); PHOSPHORUS 2.3 mg/dL (2.5-4.9)
[2018-11-27 08:00] VITALS: BP 116/70
[2018-11-27] MEDS: POTASSIUM CHLORIDE 20% 40 MEQ/15 ML UDC GT SCH (09:00)
--- NOTE | 2018-11-27 09:12 | NUR ---
S.T. Bedside swallow eval completed Pt presents w/ moderate pharyngeal dysphagia c/b severe coughing after swallows of thin liquid via straw. No overt s/s aspiration observed w/ solids or nectar thick liquids by straw. Recommend: 1) Continue mechanical soft diet, downgrade liquid texture to nectar thick liquids. Straws ok, self-fed. 2) Nsg to assist with tray set up to promote self feeding. No further tx indicated at this time. D/w LYNNETTE An, to implement prior to pt DC to B/C facility. Time [id number]
[2018-11-27] MEDS: SODIUM FERRIC GLUCONATE 125 MG in NACL 0.9% 100 ML IV SCH (09:32)
[2018-11-27] MEDS: ASCORBIC ACID 500 MG TAB PO SCH (09:34)
[2018-11-27] MEDS: TAMSULOSIN 0.4 MG CAP PO SCH (09:34)
[2018-11-27] MEDS: LACTULOSE 20 GM/30 ML UDC PO SCH (09:34)
[2018-11-27] MEDS: lamoTRIgine 25 MG TAB PO SCH (09:38)
[2018-11-27] MEDS: cloZAPine 100 MG TAB PO SCH (09:39)
--- NOTE | 2018-11-27 10:00 | NUR ---
K 5.0, POTASSIUM SUPPLEMENT HELD
--- NOTE | 2018-11-27 10:10 | NUR ---
WALKED WITH PT ALONG THE HALLWAY. PT WALKED INDEPENDENTLY WITH STANDBY ASSISTANCE. PT SAFELY RETURNED TO BED.
--- NOTE | 2018-11-27 10:50 | NUR ---
PT REFUSED [facility] LAB DRAW, MADE DR EUBANKS AWARE. DR EUBANKS SAID HE WILL LET DR PARRY KNOW.
[2018-11-27] MEDS ORDERED: CLOZ100T PO ×2 (11:45)
--- NOTE | 2018-11-27 13:40 | NUR ---
PT REFUSED FLU AND PNA VAC. STATING IT HURTS. EXPLAINED TO PT ABOUT BENEFITS AND THE RISK OF NOT GETTING THE VAC. PT STILL REFUSING.
--- NOTE | 2018-11-27 13:45 | NUR ---
PT DISCHARGED PER MD ORDER. DISCHARGE INSTRUCTIONS AND MED TEACHING GIVEN TO PT AND CALLED CASEY AT PT'S FACILITY. PT SIGNED DC PAPER. MADE FLORICULTURE TEACHER AWARE PT'S F/U APPT. REMOVED IV CATH, TIP INTACT, PRESSURE APPLIED. PT WAS DRESSED, WRIST BAND REMOVED. PT WAS WHEELED TO LOBBY BY ANNIE.
== END 2018-11-27 13:50 | disposition home or self-care (01) | DRG 74 ==
LOC: MED 16:41 → MTU 20:45
PROVIDERS: ADMIT General Practice; ATTEND General Practice
PROC: 30233N1 Transfusion of Nonautologous Red Blood Cells into Peripheral Vein, Percutaneous Approach (ICD-10-PCS; 2018-11-17)
PROC: 0DBL8ZX Excision of Transverse Colon, Via Natural or Artificial Opening Endoscopic, Diagnostic (ICD-10-PCS; principal; 2018-11-19 12:30)
PROC: 0DB68ZX Excision of Stomach, Via Natural or Artificial Opening Endoscopic, Diagnostic (ICD-10-PCS; 2018-11-19 12:30)
DX: G90.8 Other disorders of autonomic nervous system (principal); E44.0 Moderate protein-calorie malnutrition; G93.40 Encephalopathy, unspecified; Q43.8 Other specified congenital malformations of intestine; J98.11 Atelectasis; D50.9 Iron deficiency anemia, unspecified; J44.9 Chronic obstructive pulmonary disease, unspecified; F20.9 Schizophrenia, unspecified; F41.9 Anxiety disorder, unspecified; G47.00 Insomnia, unspecified; N40.0 Benign prostatic hyperplasia without lower urinary tract symptoms; E66.9 Obesity, unspecified; E83.42 Hypomagnesemia; G40.909 Epilepsy, unspecified, not intractable, without status epilepticus; M47.816 Spondylosis without myelopathy or radiculopathy, lumbar region; E83.51 Hypocalcemia; E83.39 Other disorders of phosphorus metabolism; K76.0 Fatty (change of) liver, not elsewhere classified; Z71.3 Dietary counseling and surveillance; Z28.21 Immunization not carried out because of patient refusal; Z79.899 Other long term (current) drug therapy; Z68.29 Body mass index [BMI] 29.0-29.9, adult
CPT/HCPCS: 36415; 45381; 70450; 71045; 74018; 76700; 80048; 80053; 80076; 80305; 81003; 82150; 82378; 82728; 83036; 83540; 83690; 83735; 83880; 84100; 84436; 84443; 84484; 85007; 85025; 85045; 85610; 85730; 86677; 86886; 86900; 86901; 86920; 87081; 88305; 88313; 88342; 90732; 92610; 93005; 97110; 97116; 97530; 99285; J1200; J2060; J2250; J2916; J3010; J7030; J7042; P9016; Q0092; Q0163; Q9967